=== PATIENT | male | born 1965 | race Caucasian/White ===

== ENCOUNTER 2020-03-05 10:17 | Emergency (ER) | payer BC ==
[2020-03-05 10:34] VITALS: BMI 40.7
--- NOTE | 2020-03-05 11:06 | PDOC ---
History of Present Illness - General Chief Complaint: Pain Stated Complaint: LT SHOULDER PAIN Time Seen by Provider: 03/05/20 10:43 Past History - Medical History Allergies/Adverse Reactions: Allergies Allergy/AdvReac Type Severity Reaction Status Date / Time No Known Allergies Allergy Verified 03/05/20 10:20 Home Medications: Ambulatory Orders Escitalopram Oxalate [Lexapro -] 20 mg PO DAILY 03/05/20 Insulin (Novolog) [Novolog] 10 units SQ AC 03/05/20 Ramipril [Altace] 10 mg PO DAILY 03/05/20 Rosuvastatin [Crestor -] 5 mg PO HS 03/05/20 COPD: No Diabetes: Yes HTN: Yes Hypercholesterolemia: Yes - Psycho-Social/Smoking History Smoking History: Unknown if ever smoked - Substance Abuse Hx (Audit-C & DAST Scrn) How often the patient has a drink containing alcohol: Monthly or less Score: In Men: 4 or > Positive; In Women: 3 or > Positive: 1 Screen Result (Pos requires Nsg. Audit-10AR): Negative In the last yr the pt used illegal drug/Rx for NonMed reason: No Score: Yes response is considered Positive: 0 Screen Result (Positive result requires Nsg. DAST-10): Negative *Physical Exam - Vital Signs Last Vital Signs Temp Pulse Resp BP Pulse Ox 98.1 F 89 20 158/103 H 98 03/05/20 10:22 03/05/20 10:22 03/05/20 10:22 03/05/20 10:22 03/05/20 10:22 ED Treatment Course - LABORATORY CBC & Chemistry Diagram: 03/05/20 10:40 03/05/20 10:45 Medical Decision Making - Medical Decision Making 03/05/20 11:07 HPI: 54yo M hx DM and morbid obesity presents with 2-3 weeks gradual onset L posterior shoulder pain worse when arm raised above head, worse after sleeping, started for 2 days then self-resolved, returned on Saturday and now associated wi th shooting pain down arm. No numbness/tingling, weakness, neck pain, back pain, trauma, heavy lifting, F/C. ROS: Constitutional: Negative for chills, fever, fatigue, diaphoresis. HENT: Negative for sore throat, rhinorrhea, congestion. Eyes: Negative for visual disturbance. Respiratory: Negative for shortness of breath, cough, and wheezing. Cardiovascular: Negative for chest pain, palpitations, and leg swelling. Gastrointestinal: Negative for abdominal pain, blood in stool, constipation, diarrhea, nausea, and vomiting. Genitourinary: Negative for dysuria, flank pain, and hematuria. Musculoskeletal: Positive for L shoulder pain and L arm pain. Negative for myalgias, back pain, and neck pain. Skin: Negative for rash. Neurological: Negative for light-headedness, dizziness, vertigo, syncope, weakness, numbness and headaches. Psychiatric/Behavioral: Negative for behavioral problems and confusion. PE: Gen: Alert, NAD, comfortable-appearing, obese HEENT: PERRL, EOMI, MMM, NCAT. No conjunctival pallor. Sclera are non-icteric. CV: Regular rate and rhythm. No murmurs, rubs, or gallops. PULM: No resp distress. CTAB, no wheezes, rales, or rhonchi. ABD: protuberant, soft, NT/ND, no rebound tenderness or guarding, no CVA tenderness. BACK: +upper L back ttp at delt/trapezius. No TTP of c/t/l-spine. No step-offs or deformities. MSK: No bony deformities. 2+ pulses in all extremities. NEURO: AAOx3. PERRL. No gross CN deficits. Strength and sensation grossly intact throughout. EXTREMITIES: No cyanosis. No clubbing. No edema. No calf tenderness. LUE: full non-painful AROM L shoulder/elbow/wrist. SILT throughout. 2+ pulses. <2 sec cap refill. 5/5 strength throughout. No TTP of shoulder. PSYCH: Normal mood and thought pattern. SKIN: Warm and dry. Normal capillary refill. No rashes. No jaundice. MDM: 54yo M hx DM and morbid obesity presents with 2-3 weeks gradual onset L posterior shoulder pain. Hemodynamically stable, afebrile, LUE neurovascularly intact, full ROM L shoulder. Ddx: Most likely muscle spasm vs tendon/ligament injury. Also consider fx, dislocation, malignancy, infection, metabolic derangement, anemia. No back or neck pain or neuro deficits concerning for radiculopathy. -EKG -CXR -CBC,CMP,Cardiac profile -XR shoulder -Toradol, lidoderm patch -Dispo: pending workup and reassessment, likely d/c home 03/05/20 11:29 Labs reviewed. No concerning findings. EKG reviewed: normal sinus rhythm, 82bpm, normal axis, normal intervals, no e/o acute ischemia CXR reviewed: No acute pathology XR shoulder reviewed: 3 views of the left shoulder reveal no sign of fracture or subluxation and no sign of blastic or lytic changes. There may be a bone island in the humeral head. If symptoms persist or if there is decreased range of motion, then further imaging and orthopedic consultation may be of help. Pt still in pain. -Valium Pain improved. Pt safe for d/c. Will discharge home with ortho f/u. Return precautions given. Pt understands all discharge instructions and all questions were answered. Discharge - Discharge Information Problems reviewed: Yes Clinical Impression/Diagnosis: Left shoulder pain Condition: Improved Disposition: HOME - Admission No - Follow up/Referral Referrals: Gonsalo Downs MD [Primary Care Provider] - Jarrett Kessler DO [Staff Physician] - - Patient Discharge Instructions Patient Printed Discharge Instructions: DI for Shoulder Pain Additional Instructions: You have been seen in the Emergency Department for your shoulder pain. Your EKG, chest X-ray, shoulder X-ray, and labs show no signs concerning for an emergent condition such as a heart attack or fracture. Your pain is most likely due to a muscle spasm, intermittently compressing your nerve. We have given you a referral to an Orthopedist (bone doctor) - call his office to set up a follow-up appointment for within 1 week. If you experience pain, you can take Tylenol or Ibuprofen as directed on the medication bottle, but do not exceed 3g of Ibuprofen or 4g of Tylenol a day. Follow-up with your primary care doctor within 1 week. Return to the Emergency Department immediately if you experience numbness/tingling, weakness, neck pain, or any other new or worsening symptom. - Post Discharge Activity
[2020-03-05] MEDS ORDERED: KETOROLAC TROMETHAMINE 15 MG/ML VIAL IVPUSH ONE (11:07)
[2020-03-05] MEDS ORDERED: LIDOCAINE 5% TOPICAL PATCH TP ONE (11:07)
[2020-03-05 11:10] LABS: EOS % 2.2 % (0-4.5); HEMATOCRIT 42.7 % (35.4-49); HEMOGLOBIN 14.4 GM/dL (11.7-16.9); LYMPH % 26.2 % (8-40); MCH 29.1 pg (25.7-33.7); MCHC 33.8 g/dl (32.0-35.9); MEAN CELL VOLUME 86.3 fl (80-96); MEAN PLT VOLUME 7.3 fl (7.5-11.1); MONO % 8.1 % (3.8-10.2); NEUT % 62.5 % (42.8-82.8); PLATELET COUNT 279 K/MM3 (134-434); RBC 4.95 M/mm3 (4.00-5.60); RDW 13.8 % (11.9-15.9)
[2020-03-05] MEDS ORDERED: LIDOCAINE 5% TOPICAL PATCH ONE (11:12)
[2020-03-05] MEDS ORDERED: KETOROLAC TROMETHAMINE 15 MG/ML VIAL ONE (11:12)
--- NOTE | 2020-03-05 11:32 | PDOC ---
Documentation entered by Aliya Denis SCRIBE, acting as scribe for Rajni Thomas MD. Rajni Thomas MD: This documentation has been prepared by the Cira avery Brenda, SCRIBE, under my direction and personally reviewed by me in its entirety. I confirm that the documentation accurately reflects all work, treatment, procedures, and medical decision making performed by me. Attending Attestation - Resident Resident Name: KylahShira - ED Attending Attestation I have performed the following: I have examined & evaluated the patient, The case was reviewed & discussed with the resident, I agree w/resident's findings & plan, Exceptions are as noted - HPI HPI: 03/05/20 11:32 54 YOM with a significant PMH of DM who presents to the ED for evaluation of a few weeks of left posterior shoulder pain. Patient states that the pain came on a few weeks ago and self resolved for 2 days. The pain then returned this past week worse. Patient notes pain started after he beleievs he slept weird. Patient endorses taking Advil which intermittently helps. Denies heavy lifting or trauma. Denies numbness, tingling and weakness. - Physicial Exam PE: 03/05/20 11:45 Agree with the resident's HPI and PE as documented in the electronic medical record. physical exam General: NAD, well appearing HEENT: NCAT, EOMI, PERRL. airway patent CVS: RRR, no murmur Resp: no distress, speaking full sentences. Abdomen: soft, no tenderness, nondistended Vascular: 2+ DP pulses symmetric and equal. Back: no midline tenderness, no stepoffs, FROM MSK: notable for soft compartments, Cap refill <2 sec. Proximal and distal strength 5/5, telephone lineman strength 5/5 - equal and symmetric. Plantar flexion and dorsiflexion 5/5. FROM. Sensation grossly intact to light touch. No calf tenderness. Neuro: alert, no focal neurologic deficits Skin: color normal color, warm and well perfused. Cap refill <2 sec. Upper Extremity: shoulder abduction/adduction/flexion/extension and prox strength 5/5 actively against resistance. 5/5 shoulder shrug strength. deltoid sensation intact; sensation grossly intact in median/radial/ulnar distribution. distal telephone lineman strength 5/5. 2+ radialis pulses bilaterally and symmetric. +point tenderness to left mid scapula. no shoulder tenderness 03/05/20 12:12 - Medical Decision Making 03/05/20 11:45 Vital Signs Temp Pulse Resp BP Pulse Ox 98.1 F 89 20 158/103 H 98 03/05/20 10:22 03/05/20 10:22 03/05/20 10:22 03/05/20 10:22 03/05/20 10:22 X-ray of the shoulder negative for fracture or subluxation, bony island in the humeral head otherwise unremarkable study. Chest x-ray no acute pathology is noted, analgesia here likely msk, analgesia topical lido discharge with pmd/ortho followup, 03/05/20 12:12 Heart Score/ECG Review #1 ECG reviewed & interpreted by me at: 10:35 General ECG Interpretation: Sinus Rhythm, Normal Rate, Normal Intervals 03/05/20 11:31 EKG normal sinus rhythm 82 bpm, no interval abnormalities, narrow QRS, ST and T wave segments and morphology normal. Nonspecific T wave abnormalities Discharge - Discharge Information Problems reviewed: Yes Clinical Impression/Diagnosis: Left shoulder pain Qualifiers: Chronicity: unspecified Qualified Code(s): M25.512 - Pain in left shoulder Condition: Improved Disposition: HOME - Follow up/Referral Referrals: Gonsalo Downs MD [Primary Care Provider] - Jarrett Kessler DO [Staff Physician] - - Patient Discharge Instructions Patient Printed Discharge Instructions: DI for Shoulder Pain Additional Instructions: You have been seen in the Emergency Department for your shoulder pain. Your EKG, chest X-ray, shoulder X-ray, and labs show no signs concerning for an emergent condition such as a heart attack or fracture. Your pain is most likely due to a muscle spasm, intermittently compressing your nerve. We have given you a referral to an Orthopedist (bone doctor) - call his office to set up a follow-up appointment for within 1 week. If you experience pain, you can take Tylenol or Ibuprofen as directed on the medication bottle, but do not exceed 3g of Ibuprofen or 4g of Tylenol a day. Follow-up with your primary care doctor within 1 week. Return to the Emergency Department immediately if you experience numbness/tingling, weakness, neck pain, or any other new or worsening symptom. - Post Discharge Activity
[2020-03-05 11:45] LABS: ALBUMIN 3.9 g/dl (3.4-5.0); ALK PHOS 52 U/L (45-117); ANION GAP 8 MMOL/L (8-16); BILIRUBIN,TOTAL 0.3 mg/dL (0.2-1); BLOOD UREA NITROGEN 23.1 mg/dL (7-18); CALCIUM 9.1 mg/dL (8.5-10.1); CHLORIDE 104 mmol/L (98-107); CO2 25 mmol/L (21-32); CREATININE 0.7 mg/dL (0.55-1.3); GLUCOSE,RANDOM 154 mg/dL (74-106); POTASSIUM 3.9 mmol/L (3.5-5.1); SGOT/AST 22 U/L (15-37); SGPT/ALT 34 U/L (13-61); SODIUM 137 mmol/L (136-145); TOT PROT 7.1 g/dl (6.4-8.2)
[2020-03-05] MEDS ORDERED: diazePAM 5 MG TABLET PO ONE (12:03)
[2020-03-05 12:26] VITALS: BP 140/85; PULSE 81; TEMP 98
[2020-03-05] MEDS ORDERED: LIDOCAINE PATCH REMOVAL MC SCH (22:00)
--- NOTE | 2020-03-07 21:54 | EKG ---
Test Reason : Blood Pressure : / mmHG Vent. Rate : 082 BPM Atrial Rate : 082 BPM P-R Int : 170 ms QRS Dur : 098 ms QT Int : 376 ms P-R-T Axes : 040 027 057 degrees QTc Int : 439 ms NORMAL SINUS RHYTHM POSSIBLE LEFT ATRIAL ENLARGEMENT CANNOT RULE OUT ANTERIOR INFARCT , AGE UNDETERMINED ABNORMAL ECG WHEN COMPARED WITH ECG OF 23-APR-2011 11:28, VENT. RATE HAS DECREASED BY 52 BPM T WAVE VARIATION Confirmed by POP MILLER MD ([id number]) on 03/07/2020 9:54:30 PM Referred By: Confirmed By:POP MILLER MD
== END 2020-03-05 12:24 | disposition home or self-care (01) ==
LOC: JER 10:17
PROC: 3E0333Z Introduction of Anti-inflammatory into Peripheral Vein, Percutaneous Approach (ICD-10-PCS; principal; 2020-03-05)
DX: M25.512 Pain in left shoulder (principal)
CPT/HCPCS: 36415; 71046-TC-FY; 73030-TC-LT-FY; 80053; 82550; 83735; 84484; 85025; 93005; 93010; 99285-25

== ENCOUNTER 2021-01-01 22:18 | Inpatient (IN) | payer BC ==
[2021-01-01 22:42] VITALS: BMI 38.2
[2021-01-01] MEDS ORDERED: SODIUM CHLORIDE 1,000 ML IV STA (22:47)
[2021-01-01 23:01] LABS: BASO % 0.2 % (0-2.0); HEMATOCRIT 44.7 % (35.4-49); HEMOGLOBIN 14.2 GM/dL (11.7-16.9); LYMPH % 6.4 % (8-40); MCH 29.3 pg (25.7-33.7); MCHC 31.8 g/dl (32.0-35.9); MEAN PLT VOLUME 7.6 fl (7.5-11.1); MONO % 3.6 % (3.8-10.2); NEUT % 89.8 % (42.8-82.8); PLATELET COUNT 395 10^3/uL (134-434); RBC 4.86 M/mm3 (4.00-5.60); RDW 14.6 % (11.9-15.9); WHITE BLOOD COUNT 17.9 K/mm3 (4.0-10.0)
[2021-01-01 23:26] LABS: CHLORIDE 94 mmol/L (98-107); SODIUM 129 mmol/L (136-145)
[2021-01-01 23:27] LABS: ARTERIAL BLD GAS O2 SATURATION 94.2 mmHg (95-98); ARTERIAL BLOOD GAS PO2 93.5 mmHg (80-100)
[2021-01-01 23:28] LABS: CALCIUM 9.3 mg/dL (8.5-10.1)
[2021-01-01 23:29] LABS: ALBUMIN 3.6 g/dl (3.4-5.0); ANION GAP 28 MMOL/L (8-16); BLOOD UREA NITROGEN 24.8 mg/dL (7-18); CO2 7 mmol/L (21-32)
[2021-01-01 23:32] LABS: CREATININE 1.4 mg/dL (0.55-1.3); SGOT/AST 16 U/L (15-37); SGPT/ALT 23 U/L (13-61)
[2021-01-01 23:34] LABS: BILIRUBIN,TOTAL 0.5 mg/dL (0.2-1); TOT PROT 7.2 g/dl (6.4-8.2)
[2021-01-01 23:35] LABS: ALK PHOS 93 U/L (45-117); GLUCOSE,RANDOM 594 mg/dL (74-106); LACTIC ACID 2.9 mmol/L (0.4-2.0)
[2021-01-01] MEDS ORDERED: ONDANSETRON 4 MG/2 ML VIAL IVPUSH ONE (23:36)
[2021-01-01 23:37] LABS: URINE APPEARANCE CLEAR; URINE BILIRUBIN NEGATIVE (NEGATIVE); URINE COLOR YELLOW; URINE GLUCOSE (UA) 3+ (NEGATIVE); URINE KETONE 3+ (NEGATIVE); URINE LEUK ESTERASE NEGATIVE (NEGATIVE); URINE NITRITE NEGATIVE (NEGATIVE); URINE PROTEIN TRACE (NEGATIVE); URINE UROBILINOGEN 0.2 mg/dL (0.2-1.0)
[2021-01-01] MEDS ORDERED: ASPIRIN 325 MG TABLET PO ONE (23:38)
[2021-01-01] MEDS ORDERED: ONDANSETRON 4 MG/2 ML VIAL ONE (23:38)
[2021-01-01] MEDS ORDERED: ASPIRIN 325 MG ENTERIC COATED TABLET (FP) ONE (23:41)
[2021-01-01] MEDS ORDERED: INSULIN REGULAR HUMAN 100 UNITS/ML *VIAL IVPUSH ONE (23:41)
[2021-01-01 23:50] LABS: ARTERIAL BLOOD GAS pH 7.082 (7.350-7.450)
[2021-01-02] MEDS ORDERED: INSULIN REGULAR 100 UNITS in SODIUM CHLORIDE 99 ML IVPB SCH ×2 (00:30→00:45)
[2021-01-02] MEDS ORDERED: INSULIN REGULAR HUMAN 100 UNITS/ML *VIAL* (FOR IVP) IVPUSH ONE (00:34)
[2021-01-02] MEDS ORDERED: DEXTROSE 50%-WATER - 25 GM/50 ML VIAL IVPUSH PRN (00:34)
[2021-01-02 01:18] LABS: BASO % 0.3 % (0-2.0); HEMATOCRIT 43.7 % (35.4-49); HEMOGLOBIN 13.9 GM/dL (11.7-16.9); LYMPH % 5.4 % (8-40); MCH 29.5 pg (25.7-33.7); MCHC 31.7 g/dl (32.0-35.9); MEAN CELL VOLUME 93.1 fl (80-96); MEAN PLT VOLUME 7.7 fl (7.5-11.1); MONO % 4.6 % (3.8-10.2); NEUT % 89.7 % (42.8-82.8); PLATELET COUNT 376 10^3/uL (134-434); RBC 4.69 M/mm3 (4.00-5.60); RDW 14.6 % (11.9-15.9); WHITE BLOOD COUNT 20.6 K/mm3 (4.0-10.0)
[2021-01-02] MEDS ORDERED: SODIUM CHLORIDE 0.9% 500 ML INFUS.BAG IV ONE (01:20)
[2021-01-02 01:38] LABS: CHLORIDE 100 mmol/L (98-107); SODIUM 134 mmol/L (136-145)
[2021-01-02 01:41] LABS: CALCIUM 8.5 mg/dL (8.5-10.1)
[2021-01-02 01:42] LABS: ANION GAP 29 MMOL/L (8-16); CO2 5 mmol/L (21-32)
[2021-01-02 01:45] LABS: CREATININE 1.4 mg/dL (0.55-1.3)
[2021-01-02 02:15] LABS: LACTIC ACID 2.9 mmol/L (0.4-2.0)
[2021-01-02 02:15] LABS: GLUCOSE,RANDOM 553 mg/dL (74-106)
[2021-01-02] MEDS ORDERED: SODIUM CHLORIDE 0.45%/POT 20 MEQ/1,000 ML INFUS.BAG IV SCH (02:30)
[2021-01-02] MEDS ORDERED: HEPARIN NA (PORCINE) 5,000 UNITS/ML 1ML VIAL SQ SCH (06:00)
[2021-01-02 06:07] LABS: BASO % 0.3 % (0-2.0); HEMATOCRIT 41.4 % (35.4-49); HEMOGLOBIN 13.4 GM/dL (11.7-16.9); LYMPH % 6.7 % (8-40); MCH 29.1 pg (25.7-33.7); MCHC 32.2 g/dl (32.0-35.9); MEAN CELL VOLUME 90.1 fl (80-96); MEAN PLT VOLUME 7.4 fl (7.5-11.1); MONO % 6.9 % (3.8-10.2); NEUT % 86.1 % (42.8-82.8); PLATELET COUNT 323 10^3/uL (134-434); RDW 14.3 % (11.9-15.9)
[2021-01-02 06:10] LABS: VENOUS BASE EXCESS -17.6 mmol/L (-2-2); VENOUS O2 SATURATION 74.6 % (70-80); VENOUS PCO2 38.3 mmHg (38-52)
[2021-01-02 06:13] LABS: VENOUS PH 7.093 (7.310-7.410)
[2021-01-02 06:30] LABS: CHLORIDE 106 mmol/L (98-107); SODIUM 138 mmol/L (136-145)
[2021-01-02 06:34] LABS: ALBUMIN 3.2 g/dl (3.4-5.0); CALCIUM 8.2 mg/dL (8.5-10.1)
[2021-01-02 06:35] LABS: ANION GAP 19 MMOL/L (8-16); BLOOD UREA NITROGEN 23.4 mg/dL (7-18); CO2 12 mmol/L (21-32); GLUCOSE,RANDOM 242 mg/dL (74-106); LIPASE 170 U/L (73-393); MAGNESIUM 2.1 mg/dL (1.8-2.4)
[2021-01-02 06:37] LABS: CREATININE 1.3 mg/dL (0.55-1.3); SGOT/AST 18 U/L (15-37); SGPT/ALT 23 U/L (13-61)
[2021-01-02 06:39] LABS: BILIRUBIN,TOTAL 0.5 mg/dL (0.2-1); TOT PROT 6.5 g/dl (6.4-8.2)
[2021-01-02 06:40] LABS: ALK PHOS 80 U/L (45-117)
[2021-01-02 07:17] LABS: LACTIC ACID 2.3 mmol/L (0.4-2.0)
[2021-01-02] MEDS: DEXTROSE 5%-0.45% SALINE 990 ML with POTASSIUM CHLORIDE 20 MEQ IV SCH ×2 (08:07→14:38)
[2021-01-02] MEDS: Insulin (LOG) Aspart 100 UNITS/ML VIAL SQ SCH ×3 (08:15→11:19)
[2021-01-02 09:20] LABS: BLOOD UREA NITROGEN 21.8 mg/dL (7-18)
[2021-01-02 09:24] LABS: CREATININE 1.1 mg/dL (0.55-1.3)
[2021-01-02] MEDS: MUPIROCIN 2% TOPICAL OINTMENT FOR DECOLONIZATION NS SCH ×2 (10:11→22:54)
[2021-01-02] MEDS: ASPIRIN 81 MG CHEWABLE TABLETS PO SCH (10:12)
[2021-01-02] MEDS: ATORVASTATIN CA 80 MG TABLET (FP) PO SCH (10:12)
[2021-01-02] MEDS: metoPROLOL SUCCINATE 25 MG TAB.SR.24H (FP) PO SCH (10:12)
[2021-01-02] MEDS ORDERED: CLOPIDOGREL BISULFATE 300 MG TABLET PO ONE (10:28)
[2021-01-02] MEDS ORDERED: HEPARIN NA (PORCINE) 5,000 UNITS/ML 1ML VIAL IVPUSH PRN ×2 (10:29)
[2021-01-02] MEDS ORDERED: HEPARIN - 25,000 UNIT in SODIUM CHLORIDE 495 ML IV SCH (10:30)
[2021-01-02 11:11] LABS: CHLORIDE 107 mmol/L (98-107); SODIUM 137 mmol/L (136-145)
[2021-01-02 11:13] LABS: ANION GAP 17 MMOL/L (8-16); BLOOD UREA NITROGEN 20.7 mg/dL (7-18); CALCIUM 7.7 mg/dL (8.5-10.1); CO2 13 mmol/L (21-32); GLUCOSE,RANDOM 169 mg/dL (74-106)
[2021-01-02 11:16] LABS: CREATININE 1.2 mg/dL (0.55-1.3)
[2021-01-02 14:21] LABS: CHLORIDE 108 mmol/L (98-107); SODIUM 137 mmol/L (136-145)
[2021-01-02 14:23] LABS: ANION GAP 11 MMOL/L (8-16); CALCIUM 7.6 mg/dL (8.5-10.1); CO2 18 mmol/L (21-32); GLUCOSE,RANDOM 202 mg/dL (74-106)
[2021-01-02 14:24] LABS: BLOOD UREA NITROGEN 15.8 mg/dL (7-18)
[2021-01-02 17:30] LABS: CALCIUM 7.7 mg/dL (8.5-10.1)
[2021-01-02] MEDS: INSULIN SLIDING SCALE (NOVOLOG) 1 VIAL SQ SCH ×2 (18:09→22:53)
[2021-01-02 20:47] LABS: CALCIUM 7.5 mg/dL (8.5-10.1); CHLORIDE 106 mmol/L (98-107); SODIUM 136 mmol/L (136-145)
[2021-01-02 20:48] LABS: ANION GAP 11 MMOL/L (8-16); BLOOD UREA NITROGEN 13.8 mg/dL (7-18); CO2 18 mmol/L (21-32); GLUCOSE,RANDOM 220 mg/dL (74-106)
[2021-01-02 20:54] LABS: CREATININE 0.9 mg/dL (0.55-1.3)
[2021-01-02] MEDS ORDERED: CHLORHEXIDINE GLUCONATE 4% CLEANSER FOR DECOLONIZATION TP SCH (22:00)
[2021-01-03] MEDS: DEXTROSE 5%-0.45% SALINE 990 ML with POTASSIUM CHLORIDE 20 MEQ IV SCH ×2 (01:39→08:38)
[2021-01-03] MEDS: INSULIN SLIDING SCALE (NOVOLOG) 1 VIAL SQ SCH ×2 (06:38→11:01)
[2021-01-03 07:04] LABS: ACTIVATED PTT 60.5 SECONDS (25.2-36.5)
[2021-01-03 07:21] LABS: MAGNESIUM 2.1 mg/dL (1.8-2.4)
[2021-01-03 07:24] LABS: PHOSPHOROUS 1.7 mg/dL (2.5-4.9)
[2021-01-03 08:20] LABS: BASO % 0.7 % (0-2.0); EOS % 0.3 % (0-4.5); HEMATOCRIT 37.2 % (35.4-49); HEMOGLOBIN 12.5 GM/dL (11.7-16.9); LYMPH % 20.6 % (8-40); MCH 29.8 pg (25.7-33.7); MCHC 33.5 g/dl (32.0-35.9); MEAN CELL VOLUME 88.9 fl (80-96); MEAN PLT VOLUME 7.7 fl (7.5-11.1); MONO % 9.8 % (3.8-10.2); NEUT % 68.6 % (42.8-82.8); PLATELET COUNT 214 10^3/uL (134-434); RBC 4.19 M/mm3 (4.00-5.60); RDW 14.7 % (11.9-15.9); WHITE BLOOD COUNT 9.5 K/mm3 (4.0-10.0)
[2021-01-03 08:25] LABS: INR 0.93 (0.83-1.09); PROTHROMBIN TIME (PATIENT) 11.3 SEC (9.7-13.0)
[2021-01-03] MEDS ORDERED: POTASSIUM PHOSPHATE 20 MM in SODIUM CHLORIDE 500 ML IVPB ONE (08:30)
[2021-01-03] MEDS: metoPROLOL SUCCINATE 25 MG TAB.SR.24H (FP) PO SCH (09:06)
[2021-01-03] MEDS: ASPIRIN 81 MG CHEWABLE TABLETS PO SCH (09:06)
[2021-01-03] MEDS: ATORVASTATIN CA 80 MG TABLET (FP) PO SCH (09:06)
[2021-01-03] MEDS: MUPIROCIN 2% TOPICAL OINTMENT FOR DECOLONIZATION NS SCH (09:07)
[2021-01-03 09:39] LABS: BLOOD UREA NITROGEN 10.8 mg/dL (7-18); CALCIUM 7.7 mg/dL (8.5-10.1)
[2021-01-03 09:43] LABS: CREATININE 0.9 mg/dL (0.55-1.3)
[2021-01-03] MEDS ORDERED: CLOPIDOGREL BISULFATE 75 MG TABLET (FP) PO SCH (10:00)
[2021-01-03 11:08] VITALS: BP 129/83; PULSE 88; TEMP 98.6
[2021-01-03] MEDS ORDERED: SODIUM PHOSPHATE - 30 MM in SODIUM CHLORIDE 250 ML IVPB ONE (11:47)
== END 2021-01-03 11:50 | disposition short-term general hospital (02) | DRG 280 ==
LOC: JER 22:18 → JERBED 01-02 00:21 → JICU 01-02 02:47
PROVIDERS: ADMIT Internal Medicine; ATTEND Internal Medicine
DX: I21.4 Non-ST elevation (NSTEMI) myocardial infarction (principal); E10.10 Type 1 diabetes mellitus with ketoacidosis without coma; N17.9 Acute kidney failure, unspecified; E78.5 Hyperlipidemia, unspecified; I10 Essential (primary) hypertension; E66.9 Obesity, unspecified; Z91.11 Patient's noncompliance with dietary regimen; Z68.38 Body mass index [BMI] 38.0-38.9, adult
CPT/HCPCS: 36415; 36600; 71045-TC-FY; 80048; 80053; 81003; 82010; 82550; 82803; 82962; 83036; 83605; 83690; 83735; 84100; 84484; 85025; 85610; 85730; 87040; 87086; 93005; 93010; 99285-25; C9803; J1644; J3480; U0003; U0005

== ENCOUNTER 2021-02-06 12:38 | Inpatient (IN) | payer BC ==
[2021-02-06 13:48] VITALS: BMI 38.0
[2021-02-06 13:54] LABS: VENOUS BASE EXCESS -4.3 mmol/L (-2-2); VENOUS O2 SATURATION 31.2 % (70-80); VENOUS PCO2 44.2 mmHg (38-52); VENOUS PH 7.307 (7.310-7.410)
[2021-02-06 13:57] LABS: BASO % 0.4 % (0-2.0); EOS % 1.5 % (0-4.5); HEMATOCRIT 17.1 % (35.4-49); LYMPH % 16.3 % (8-40); MCH 30.2 pg (25.7-33.7); MCHC 32.1 g/dl (32.0-35.9); MONO % 6.4 % (3.8-10.2); NEUT % 75.4 % (42.8-82.8); PLATELET COUNT 345 10^3/uL (134-434); RBC 1.82 M/mm3 (4.00-5.60); WHITE BLOOD COUNT 7.3 K/mm3 (4.0-10.0)
[2021-02-06 14:01] LABS: HEMOGLOBIN 5.5 GM/dL (11.7-16.9)
[2021-02-06 14:05] LABS: PROTHROMBIN TIME (PATIENT) 12.3 SEC (9.7-13.0)
[2021-02-06 14:07] LABS: ACTIVATED PTT 25.4 SECONDS (25.2-36.5)
[2021-02-06 14:19] LABS: CHLORIDE 102 mmol/L (98-107); SODIUM 135 mmol/L (136-145)
[2021-02-06 14:21] LABS: ALBUMIN 2.8 g/dl (3.4-5.0); ANION GAP 12 MMOL/L (8-16); BLOOD UREA NITROGEN 14.2 mg/dL (7-18); CALCIUM 7.6 mg/dL (8.5-10.1); CO2 22 mmol/L (21-32)
[2021-02-06 14:24] LABS: SGOT/AST 8 U/L (15-37); SGPT/ALT 14 U/L (13-61)
[2021-02-06 14:25] LABS: CREATININE 0.8 mg/dL (0.55-1.3)
[2021-02-06 14:26] LABS: BILIRUBIN,TOTAL 0.5 mg/dL (0.2-1); TOT PROT 5.6 g/dl (6.4-8.2)
[2021-02-06 14:27] LABS: ALK PHOS 51 U/L (45-117)
[2021-02-06 15:01] LABS: GLUCOSE,RANDOM 404 mg/dL (74-106)
[2021-02-06] MEDS ORDERED: Insulin (LOG) Aspart 100 UNITS/ML VIAL SQ ONE (15:17)
[2021-02-06] MEDS ORDERED: INSULIN SLIDING SCALE (NOVOLOG) 1 VIAL SQ ONE (15:26)
[2021-02-06] MEDS ORDERED: PANTOPRAZOLE 40 MG TABLET PO SCH (18:45)
[2021-02-06] MEDS ORDERED: INSULIN SLIDING SCALE (NOVOLOG) 1 VIAL SQ SCH (22:00)
[2021-02-06] MEDS: SODIUM CHLORIDE 1,000 ML IV SCH (22:03)
[2021-02-06] MEDS: ROSUVASTATIN CA 10 MG TABLET (FP) PO SCH (22:04)
[2021-02-06] MEDS: PANTOPRAZOLE SODIUM 40 MG VIAL IVPUSH SCH (22:04)
[2021-02-07] MEDS: INSULIN SLIDING SCALE (NOVOLOG) 1 VIAL SQ SCH ×4 (06:34→21:44)
[2021-02-07] MEDS ORDERED: INSULIN (LEVEMIR) 100 UNITS/ML UNITS SQ SCH ×2 (07:00→22:24)
[2021-02-07 08:05] LABS: BASO % 0.7 % (0-2.0); EOS % 2.6 % (0-4.5); HEMATOCRIT 22.4 % (35.4-49); HEMOGLOBIN 7.4 GM/dL (11.7-16.9); LYMPH % 23.2 % (8-40); MCH 29.7 pg (25.7-33.7); MCHC 32.9 g/dl (32.0-35.9); MEAN CELL VOLUME 90.1 fl (80-96); MEAN PLT VOLUME 7.1 fl (7.5-11.1); MONO % 7.1 % (3.8-10.2); NEUT % 66.4 % (42.8-82.8); PLATELET COUNT 350 10^3/uL (134-434); RBC 2.49 M/mm3 (4.00-5.60); RDW 15.7 % (11.9-15.9); WHITE BLOOD COUNT 6.6 K/mm3 (4.0-10.0)
[2021-02-07 08:30] LABS: ALBUMIN 2.6 g/dl (3.4-5.0); BLOOD UREA NITROGEN 12.4 mg/dL (7-18); CALCIUM 7.7 mg/dL (8.5-10.1); MAGNESIUM 2.4 mg/dL (1.8-2.4)
[2021-02-07 08:33] LABS: CREATININE 0.6 mg/dL (0.55-1.3); PHOSPHOROUS 3.5 mg/dL (2.5-4.9)
[2021-02-07 08:35] LABS: BILIRUBIN,TOTAL 1.2 mg/dL (0.2-1); TOT PROT 5.3 g/dl (6.4-8.2)
[2021-02-07] MEDS: PANTOPRAZOLE SODIUM 40 MG VIAL IVPUSH SCH ×2 (09:14→21:32)
[2021-02-07] MEDS: ESCITALOPRAM OXALATE 20 MG TABLET PO SCH (09:14)
[2021-02-07] MEDS: CHOLECALCIFEROL (VIT D3) 400 UNIT (10 MCG) TABLET PO SCH (09:14)
[2021-02-07] MEDS: RAMIPRIL 5 MG CAPSULE PO SCH (09:14)
[2021-02-07 20:45] LABS: HEMATOCRIT 24.4 % (35.4-49); HEMOGLOBIN 8.1 GM/dL (11.7-16.9); MCH 29.4 pg (25.7-33.7); MEAN PLT VOLUME 6.9 fl (7.5-11.1); PLATELET COUNT 354 10^3/uL (134-434); RBC 2.74 M/mm3 (4.00-5.60); RDW 15.6 % (11.9-15.9); WHITE BLOOD COUNT 7.9 K/mm3 (4.0-10.0)
[2021-02-07] MEDS: ROSUVASTATIN CA 10 MG TABLET (FP) PO SCH (21:31)
[2021-02-07] MEDS: SODIUM CHLORIDE 1,000 ML IV SCH (21:43)
[2021-02-07] MEDS: INSULIN (LEVEMIR) 100 UNITS/ML UNITS SQ SCH (21:43)
[2021-02-08] MEDS: INSULIN SLIDING SCALE (NOVOLOG) 1 VIAL SQ SCH ×4 (06:42→21:22)
[2021-02-08 07:55] LABS: HEMATOCRIT 25.6 % (35.4-49); HEMOGLOBIN 8.5 GM/dL (11.7-16.9); MCH 29.7 pg (25.7-33.7); MCHC 33.2 g/dl (32.0-35.9); MEAN CELL VOLUME 89.4 fl (80-96); MEAN PLT VOLUME 7.1 fl (7.5-11.1); PLATELET COUNT 366 10^3/uL (134-434); RBC 2.86 M/mm3 (4.00-5.60); RDW 15.8 % (11.9-15.9); WHITE BLOOD COUNT 7.5 K/mm3 (4.0-10.0)
[2021-02-08 08:11] LABS: CALCIUM 7.9 mg/dL (8.5-10.1)
[2021-02-08 08:12] LABS: ALBUMIN 2.8 g/dl (3.4-5.0); BLOOD UREA NITROGEN 9.8 mg/dL (7-18); MAGNESIUM 2.3 mg/dL (1.8-2.4)
[2021-02-08 08:14] LABS: BILIRUBIN,TOTAL 0.9 mg/dL (0.2-1)
[2021-02-08 08:15] LABS: CREATININE 0.5 mg/dL (0.55-1.3); PHOSPHOROUS 3.7 mg/dL (2.5-4.9)
[2021-02-08 08:18] LABS: TOT PROT 5.4 g/dl (6.4-8.2)
[2021-02-08] MEDS ORDERED: PT OWN MED DRAWER 7, Y5N ONE ×2 (09:04→12:29)
[2021-02-08] MEDS: RAMIPRIL 5 MG CAPSULE PO SCH (09:21)
[2021-02-08] MEDS: PANTOPRAZOLE SODIUM 40 MG VIAL IVPUSH SCH (09:21)
[2021-02-08] MEDS: CHOLECALCIFEROL (VIT D3) 400 UNIT (10 MCG) TABLET PO SCH (09:22)
[2021-02-08] MEDS: ESCITALOPRAM OXALATE 20 MG TABLET PO SCH (09:22)
[2021-02-08] MEDS ORDERED: IRON SUCROSE INJECTION 200 MG in SODIUM CHLORIDE 100 ML IVPB ONE (12:04)
[2021-02-08] MEDS: ASPIRIN 81 MG CHEWABLE TABLETS PO SCH (17:38)
[2021-02-08] MEDS: SODIUM CHLORIDE 1,000 ML IV SCH (19:45)
[2021-02-08] MEDS ORDERED: INSULIN (LEVEMIR) 100 UNITS/ML UNITS SQ SCH (20:33)
[2021-02-08] MEDS ORDERED: INSULIN (NOVOLOG) ASPART 100 UNITS/ML 10ML VIAL ONE (21:14)
[2021-02-08] MEDS: PANTOPRAZOLE 40 MG TABLET PO SCH (21:22)
[2021-02-08] MEDS: INSULIN (LEVEMIR) 100 UNITS/ML UNITS SQ SCH (21:24)
[2021-02-08] MEDS ORDERED: ROSUVASTATIN CA 20 MG TABLET (FP) PO SCH (22:00)
[2021-02-09] MEDS: INSULIN SLIDING SCALE (NOVOLOG) 1 VIAL SQ SCH ×3 (06:18→16:57)
[2021-02-09 07:35] LABS: HEMATOCRIT 25.5 % (35.4-49); HEMOGLOBIN 8.4 GM/dL (11.7-16.9); MCH 29.1 pg (25.7-33.7); MCHC 32.8 g/dl (32.0-35.9); MEAN CELL VOLUME 88.7 fl (80-96); MEAN PLT VOLUME 6.7 fl (7.5-11.1); PLATELET COUNT 367 10^3/uL (134-434); RBC 2.88 M/mm3 (4.00-5.60); RDW 15.7 % (11.9-15.9); WHITE BLOOD COUNT 8.3 K/mm3 (4.0-10.0)
[2021-02-09 07:43] LABS: BLOOD UREA NITROGEN 12.7 mg/dL (7-18); CALCIUM 7.6 mg/dL (8.5-10.1)
[2021-02-09 07:44] LABS: MAGNESIUM 2.2 mg/dL (1.8-2.4)
[2021-02-09 07:47] LABS: CREATININE 0.5 mg/dL (0.55-1.3)
[2021-02-09] MEDS: CHOLECALCIFEROL (VIT D3) 400 UNIT (10 MCG) TABLET PO SCH (10:07)
[2021-02-09] MEDS: RAMIPRIL 5 MG CAPSULE PO SCH (10:07)
[2021-02-09] MEDS: ASPIRIN 81 MG CHEWABLE TABLETS PO SCH (10:08)
[2021-02-09] MEDS: ESCITALOPRAM OXALATE 20 MG TABLET PO SCH (10:08)
[2021-02-09] MEDS: PANTOPRAZOLE 40 MG TABLET PO SCH (10:08)
[2021-02-09 14:59] VITALS: BP 135/86; PULSE 100; TEMP 98.2
== END 2021-02-09 17:49 | disposition home or self-care (01) | DRG 638 ==
LOC: JER 12:38 → JERBED 15:29 → J4W 20:16
PROVIDERS: ATTEND Internal Medicine
PROC: 30233N1 Transfusion of Nonautologous Red Blood Cells into Peripheral Vein, Percutaneous Approach (ICD-10-PCS; principal; 2021-02-06)
DX: E11.65 Type 2 diabetes mellitus with hyperglycemia (principal); K92.2 Gastrointestinal hemorrhage, unspecified; D64.9 Anemia, unspecified; I10 Essential (primary) hypertension; E78.5 Hyperlipidemia, unspecified; I25.10 Atherosclerotic heart disease of native coronary artery without angina pectoris
CPT/HCPCS: 36415; 36430; 70450-TC; 70551-TC; 71045-TC-FY; 80048; 80053; 82010; 82272; 82550; 82607; 82728; 82747; 82803; 82962; 83010; 83036; 83540; 83550; 83615; 83690; 83735; 84100; 84443; 84484; 85014; 85025; 85027; 85045; 85610; 85730; 86850; 86900; 86901; 86922; 93005; 93010; 93306-TC; 93880-TC; 97116-GP; 97161-GP; 99285-25; C9803; J1756; P9058; U0003; U0005

== ENCOUNTER 2021-04-23 21:42 | Inpatient (IN) | payer BC ==
[2021-04-23] MEDS ORDERED: ONDANSETRON 4 MG/2 ML VIAL IVPUSH ONE (22:27)
[2021-04-23] MEDS ORDERED: LACTATED RINGERS SOLUTION 1000 ML INFUS.BAG IV ONE ×2 (22:27→23:13)
[2021-04-23] MEDS ORDERED: ONDANSETRON 4 MG/2 ML VIAL ONE (22:46)
[2021-04-23 23:07] LABS: BASO % 0.3 % (0-2.0); HEMATOCRIT 45.8 % (35.4-49); HEMOGLOBIN 13.9 GM/dL (11.7-16.9); MEAN CELL VOLUME 86.5 fl (80-96)
[2021-04-23 23:08] LABS: VENOUS BASE EXCESS -24.6 mmol/L (-2-2); VENOUS O2 SATURATION 84.2 % (70-80); VENOUS PCO2 17.2 mmHg (38-52)
[2021-04-23 23:11] LABS: VENOUS PH 7.03 (7.310-7.410)
[2021-04-23 23:15] LABS: INR 0.94 (0.83-1.09); PROTHROMBIN TIME (PATIENT) 11.4 SEC (9.7-13.0)
[2021-04-23 23:17] LABS: ACTIVATED PTT 30.2 SECONDS (25.2-36.5)
[2021-04-23 23:23] LABS: EOS % 0.1 % (0-4.5); LYMPH % 5.5 % (8-40); MCH 26.2 pg (25.7-33.7); MCHC 30.3 g/dl (32.0-35.9); MEAN PLT VOLUME 8.5 fl (7.5-11.1); MONO % 2.9 % (3.8-10.2); NEUT % 91.2 % (42.8-82.8); PLATELET COUNT 386 10^3/uL (134-434); RDW 17.7 % (11.9-15.9); WHITE BLOOD COUNT 17.2 K/mm3 (4.0-10.0)
[2021-04-23 23:32] LABS: CHLORIDE 97 mmol/L (98-107); SODIUM 133 mmol/L (136-145)
[2021-04-23 23:34] LABS: CALCIUM 9.3 mg/dL (8.5-10.1)
[2021-04-23 23:35] LABS: ALBUMIN 3.8 g/dl (3.4-5.0); ANION GAP 30 MMOL/L (8-16); BLOOD UREA NITROGEN 21.7 mg/dL (7-18); CO2 6 mmol/L (21-32); MAGNESIUM 2.3 mg/dL (1.8-2.4)
[2021-04-23 23:38] LABS: CREATININE 1.7 mg/dL (0.55-1.3); SGOT/AST 21 U/L (15-37); SGPT/ALT 14 U/L (13-61)
[2021-04-23 23:40] LABS: BILIRUBIN,TOTAL 0.4 mg/dL (0.2-1); TOT PROT 7.7 g/dl (6.4-8.2)
[2021-04-23 23:41] LABS: ALK PHOS 76 U/L (45-117)
[2021-04-23 23:44] LABS: ANISOCYTOSIS 1+; MACROCYTOSIS 1+; N-TERMINAL BNP 3695.9 pg/ml (5-125)
[2021-04-23 23:44] LABS: EPI CELLS 6 /uL (0-25.1); HYALINE CASTS 4 /uL (0-3.1); URINE APPEARANCE CLEAR; URINE BACTERIA 2 /uL (0-1359); URINE BILIRUBIN NEGATIVE (NEGATIVE); URINE COLOR YELLOW; URINE GLUCOSE (UA) 3+ (NEGATIVE); URINE KETONE 3+ (NEGATIVE); URINE LEUK ESTERASE NEGATIVE (NEGATIVE); URINE NITRITE NEGATIVE (NEGATIVE); URINE PROTEIN 1+ (NEGATIVE); URINE RBC 8 /uL (0-23.9); URINE UROBILINOGEN 0.2 mg/dL (0.2-1.0); URINE WBC 4 /uL (0-25.8)
[2021-04-23] MEDS ORDERED: INSULIN REGULAR 100 UNITS in SODIUM CHLORIDE 99 ML IVPB SCH (23:45)
[2021-04-23] MEDS ORDERED: SODIUM CHLORIDE 0.45% 1,000 ML IV SCH (23:45)
[2021-04-23 23:50] LABS: GLUCOSE,RANDOM 652 mg/dL (74-106)
[2021-04-23] MEDS ORDERED: INSULIN REGULAR HUMAN 100 UNITS/ML *VIAL* (FOR IVP) IVPUSH ONE (23:56)
[2021-04-24] MEDS ORDERED: LACTATED RINGERS SOLUTION 1,000 ML/1,000 ML INFUS.BAG IV SCH (00:15)
[2021-04-24] MEDS ORDERED: ASPIRIN 81 MG CHEWABLE TABLETS PO ONE (00:16)
[2021-04-24] MEDS ORDERED: ASPIRIN 81 MG CHEWABLE TABLETS ONE (00:25)
[2021-04-24] MEDS ORDERED: METOPROLOL TARTRATE 5 MG/5 ML VIAL IVPUSH ONE (00:55)
[2021-04-24] MEDS ORDERED: metoPROLOL SUCCINATE 25 MG TAB.SR.24H (FP) PO ONE (00:55)
[2021-04-24] MEDS ORDERED: SODIUM CHLORIDE 1,000 ML IV SCH (01:30)
[2021-04-24 03:47] LABS: CHLORIDE 102 mmol/L (98-107); SODIUM 135 mmol/L (136-145)
[2021-04-24 03:48] LABS: CALCIUM 8.4 mg/dL (8.5-10.1)
[2021-04-24 03:49] LABS: BLOOD UREA NITROGEN 20.3 mg/dL (7-18); CO2 5 mmol/L (21-32)
[2021-04-24 03:52] LABS: CREATININE 1.6 mg/dL (0.55-1.3)
[2021-04-24 03:56] LABS: ANION GAP 28 MMOL/L (8-16); GLUCOSE,RANDOM > 500 mg/dL (74-106)
[2021-04-24] MEDS ORDERED: CALCIUM GLUCONATE 10% - 1,000 MG/10 ML VIAL IVPB ONE (04:40)
[2021-04-24 05:09] VITALS: BMI 38.4
[2021-04-24] MEDS: HEPARIN NA (PORCINE) 5,000 UNITS/ML 1ML VIAL SQ SCH ×2 (06:54→14:03)
[2021-04-24 07:03] LABS: BASO % 0.3 % (0-2.0); HEMATOCRIT 40.5 % (35.4-49); HEMOGLOBIN 12.3 GM/dL (11.7-16.9); LYMPH % 6.7 % (8-40); MCH 26.2 pg (25.7-33.7); MCHC 30.3 g/dl (32.0-35.9); MEAN CELL VOLUME 86.4 fl (80-96); MEAN PLT VOLUME 8.7 fl (7.5-11.1); MONO % 8.7 % (3.8-10.2); NEUT % 84.3 % (42.8-82.8); PLATELET COUNT 321 10^3/uL (134-434); RBC 4.69 M/mm3 (4.00-5.60); RDW 17.2 % (11.9-15.9); WHITE BLOOD COUNT 22.1 K/mm3 (4.0-10.0)
[2021-04-24 07:17] LABS: MAGNESIUM 1.7 mg/dL (1.8-2.4)
[2021-04-24 07:18] LABS: CHLORIDE 102 mmol/L (98-107); SODIUM 136 mmol/L (136-145)
[2021-04-24 07:21] LABS: CALCIUM 8.2 mg/dL (8.5-10.1)
[2021-04-24 07:22] LABS: ANION GAP 26 MMOL/L (8-16); CO2 7 mmol/L (21-32)
[2021-04-24 07:25] LABS: CREATININE 1.7 mg/dL (0.55-1.3)
[2021-04-24 08:22] LABS: GLUCOSE,RANDOM 460 mg/dL (74-106)
[2021-04-24 09:09] LABS: ANISOCYTOSIS 0; HELMET CELLS 0; HOWELL-JOLLY BODIES 0; MACROCYTOSIS 0; OVALOCYTE 0; PLATELET ESTIMATE NORMAL; ROULEAU 0; SICKELED CELLS 0; TARGET CELLS 0; TEAR DROP CELLS 0; TOXIC GRANULATION 0
[2021-04-24 09:21] LABS: CHLORIDE 112 mmol/L (98-107); SODIUM 140 mmol/L (136-145)
[2021-04-24 09:23] LABS: CALCIUM 8.2 mg/dL (8.5-10.1)
[2021-04-24 09:24] LABS: ANION GAP 17 MMOL/L (8-16); BLOOD UREA NITROGEN 16.3 mg/dL (7-18); CO2 12 mmol/L (21-32); MAGNESIUM 1.9 mg/dL (1.8-2.4)
[2021-04-24 09:26] LABS: GLUCOSE,RANDOM 210 mg/dL (74-106)
[2021-04-24 09:27] LABS: CREATININE 1.2 mg/dL (0.55-1.3)
[2021-04-24] MEDS ORDERED: D5-1/2NS+40 MEQ KCL - 40 MEQ/1,000 ML INFUS.BAG IV SCH ×2 (09:30→09:31)
[2021-04-24 09:32] LABS: PHOSPHOROUS 0.7 mg/dL (2.5-4.9)
[2021-04-24] MEDS ORDERED: ASPIRIN 81 MG CHEWABLE TABLETS PO SCH (10:00)
[2021-04-24] MEDS ORDERED: PANTOPRAZOLE SODIUM 40 MG VIAL IVPUSH SCH (10:00)
[2021-04-24] MEDS ORDERED: MUPIROCIN 2% TOPICAL OINTMENT FOR DECOLONIZATION NS SCH (10:00)
[2021-04-24] MEDS ORDERED: POTASSIUM PHOSPHATE IVPB ONE (10:30)
[2021-04-24] MEDS ORDERED: SODIUM CHLORIDE IVPB ONE (10:30)
[2021-04-24 11:18] VITALS: TEMP 98
[2021-04-24] MEDS ORDERED: INSULIN REGULAR 100 UNITS in SODIUM CHLORIDE 99 ML IVPB SCH (11:55)
[2021-04-24 15:17] LABS: ANION GAP 13 MMOL/L (8-16); BLOOD UREA NITROGEN 13.9 mg/dL (7-18); CALCIUM 8.1 mg/dL (8.5-10.1); CHLORIDE 114 mmol/L (98-107); CO2 13 mmol/L (21-32); CREATININE 1.1 mg/dL (0.55-1.3); GLUCOSE,RANDOM 206 mg/dL (74-106); MAGNESIUM 1.9 mg/dL (1.8-2.4); PHOSPHOROUS 1.7 mg/dL (2.5-4.9); SODIUM 140 mmol/L (136-145)
[2021-04-24 16:25] VITALS: PULSE 92
[2021-04-24 16:37] LABS: HEMATOCRIT 34.3 % (35.4-49); MCH 26.4 pg (25.7-33.7); MEAN CELL VOLUME 82.4 fl (80-96); MEAN PLT VOLUME 8.5 fl (7.5-11.1); PLATELET COUNT 246 10^3/uL (134-434); RBC 4.16 M/mm3 (4.00-5.60); RDW 17.3 % (11.9-15.9); WHITE BLOOD COUNT 16.5 K/mm3 (4.0-10.0)
[2021-04-24] MEDS ORDERED: INSULIN (LEVEMIR) 100 UNITS/ML UNITS SQ ONE (16:44)
[2021-04-24 16:45] LABS: CHLORIDE 109 mmol/L (98-107); SODIUM 139 mmol/L (136-145)
[2021-04-24 16:47] LABS: CALCIUM 7.9 mg/dL (8.5-10.1)
[2021-04-24 16:48] LABS: ANION GAP 14 MMOL/L (8-16); BLOOD UREA NITROGEN 11.5 mg/dL (7-18); CO2 17 mmol/L (21-32)
[2021-04-24 16:51] LABS: CREATININE 1.2 mg/dL (0.55-1.3); GLUCOSE,RANDOM 211 mg/dL (74-106); SGOT/AST 77 U/L (15-37); SGPT/ALT 15 U/L (13-61)
[2021-04-24 16:52] LABS: BILIRUBIN,TOTAL 0.2 mg/dL (0.2-1)
[2021-04-24 16:53] LABS: ALK PHOS 51 U/L (45-117); TOT PROT 5.8 g/dl (6.4-8.2)
[2021-04-24 17:25] LABS: ALBUMIN 2.7 g/dl (3.4-5.0)
[2021-04-24] MEDS ORDERED: CLOPIDOGREL BISULFATE 300 MG TABLET PO ONE (17:43)
[2021-04-24] MEDS ORDERED: HEPARIN NA (PORCINE) 5,000 UNITS/ML 1ML VIAL IVPUSH PRN ×2 (17:43)
[2021-04-24] MEDS ORDERED: HEPARIN - 25,000 UNIT in SODIUM CHLORIDE 495 ML IV SCH (17:45)
[2021-04-24 18:42] VITALS: BP 124/79
[2021-04-24] MEDS ORDERED: CHLORHEXIDINE GLUCONATE 4% CLEANSER FOR DECOLONIZATION TP SCH (22:00)
[2021-04-24] MEDS ORDERED: ATORVASTATIN CA 40 MG TABLET (FP) PO SCH (22:00)
== END 2021-04-24 18:40 | disposition short-term general hospital (02) | DRG 638 ==
LOC: JER 21:42 → JERBED 04-24 01:00 → JICU 04-24 03:49
PROVIDERS: ADMIT Internal Medicine; ATTEND Internal Medicine
DX: E10.10 Type 1 diabetes mellitus with ketoacidosis without coma (principal); N17.9 Acute kidney failure, unspecified; I24.8 Other forms of acute ischemic heart disease; I25.10 Atherosclerotic heart disease of native coronary artery without angina pectoris; I10 Essential (primary) hypertension; E78.5 Hyperlipidemia, unspecified; I25.2 Old myocardial infarction; Z79.4 Long term (current) use of insulin; E86.0 Dehydration
CPT/HCPCS: 36415; 71045-TC-FY; 76775-TC; 80048; 80053; 81003; 82010; 82550; 82553; 82803; 82962; 83036; 83605; 83735; 83880; 84100; 84443; 84484; 85025; 85027; 85379; 85610; 85730; 86850; 86900; 86901; 87040; 87086; 87804; 93005; 93010; 93306-TC; 99285-25; C9803; J1644; U0003; U0005

== ENCOUNTER 2023-10-20 13:38 | Emergency (ER) | payer BC ==
[2023-10-20 13:44] VITALS: RESP 18; BMI 39.9
[2023-10-20 14:49] LABS: VENOUS BASE EXCESS -2.9 mmol/L (-2-2); VENOUS O2 SATURATION 87.3 % (70-80); VENOUS PCO2 41.5 mmHg (38-52); VENOUS PH 7.352 (7.310-7.410)
[2023-10-20 14:50] LABS: BASO % 0.9 % (0-2.0); EOS % 1.6 % (0-4.5); HEMATOCRIT 40.6 % (35.4-49); HEMOGLOBIN 13.4 GM/dL (11.7-16.9); LYMPH % 13.7 % (8-40); MCH 29.2 pg (25.7-33.7); MCHC 33.1 g/dl (32.0-35.9); MEAN CELL VOLUME 88.1 fl (80-96); MEAN PLT VOLUME 7.1 fl (7.5-11.1); NEUT % 78.8 % (42.8-82.8); PLATELET COUNT 273 10^3/uL (134-434); RBC 4.61 M/mm3 (4.00-5.60); RDW 14.6 % (11.9-15.9)
[2023-10-20] MEDS: LACTATED RINGERS SOLUTION 1000 ML INFUS.BAG IV ONE ×2 (14:51→16:31)
[2023-10-20 14:56] LABS: INR 1.05 (0.83-1.09); PROTHROMBIN TIME (PATIENT) 12.2 SEC (9.7-13.0)
[2023-10-20 14:59] LABS: ACTIVATED PTT 30.8 SECONDS (25.2-36.5)
[2023-10-20 15:14] LABS: URINE APPEARANCE CLEAR; URINE BILIRUBIN NEGATIVE (NEGATIVE); URINE COLOR YELLOW; URINE GLUCOSE (UA) 3+ (NEGATIVE); URINE KETONE 1+ (NEGATIVE); URINE LEUK ESTERASE NEGATIVE (NEGATIVE); URINE NITRITE NEGATIVE (NEGATIVE); URINE PROTEIN NEGATIVE (NEGATIVE); URINE UROBILINOGEN 0.2 mg/dL (0.2-1.0)
[2023-10-20 15:22] LABS: ALBUMIN 3.3 g/dl (3.4-5.0); ALK PHOS 46 U/L (45-117); ANION GAP 4 mmol/L (4-13); BILIRUBIN,TOTAL 0.8 mg/dL (0.2-1); BLOOD UREA NITROGEN 24.6 mg/dL (7-18); CALCIUM 8.8 mg/dL (8.5-10.1); CHLORIDE 101 mmol/L (98-107); CO2 28 mmol/L (21-32); CREATININE 1.1 mg/dL (0.55-1.3); GLUCOSE,RANDOM 457 mg/dL (74-106); MAGNESIUM 1.9 mg/dL (1.8-2.4); POTASSIUM 5.1 mmol/L (3.5-5.1); SGOT/AST 31 U/L (15-37); SGPT/ALT 26 U/L (13-61); SODIUM 133 mmol/L (136-145); TOT PROT 6.3 g/dl (6.4-8.2)
[2023-10-20 15:50] VITALS: BP 128/77; PULSE 91; TEMP 97.9
[2023-10-20 17:03] LABS: ALBUMIN 3.1 g/dl (3.4-5.0); BILIRUBIN,TOTAL 0.4 mg/dL (0.2-1); BLOOD UREA NITROGEN 23.4 mg/dL (7-18); CALCIUM 8.6 mg/dL (8.5-10.1); CREATININE 0.9 mg/dL (0.55-1.3); POTASSIUM 4.2 mmol/L (3.5-5.1); TOT PROT 5.8 g/dl (6.4-8.2)
== END 2023-10-20 18:07 | disposition home or self-care (01) ==
LOC: JER 13:38
DX: E10.65 Type 1 diabetes mellitus with hyperglycemia (principal); Z79.4 Long term (current) use of insulin; R35.0 Frequency of micturition; K92.1 Melena; R07.9 Chest pain, unspecified; Z20.822 Contact with and (suspected) exposure to COVID-19
CPT/HCPCS: 0241U-QW; 36415; 71045-TC-FY; 80053; 81003; 82010; 82272; 82803; 82962; 83735; 83880; 84484; 85025; 85610; 85730; 87086; 93005; 93010; 99285-25

== ENCOUNTER 2023-10-31 02:11 | Inpatient (IN) | payer BC ==
[2023-10-31] MEDS: LACTATED RINGERS SOLUTION 1000 ML INFUS.BAG IV ONE ×4 (03:23→05:44)
[2023-10-31 03:29] LABS: VENOUS O2 SATURATION 91.1 % (70-80); VENOUS PCO2 38.8 mmHg (38-52); VENOUS PH 7.248 (7.310-7.410)
[2023-10-31 03:30] LABS: BASO % 0.5 % (0-2.0); EOS % 0.5 % (0-4.5); HEMATOCRIT 45.3 % (35.4-49); LYMPH % 12.9 % (8-40); MCHC 33.1 g/dl (32.0-35.9); MEAN CELL VOLUME 87.5 fl (80-96); MEAN PLT VOLUME 7.2 fl (7.5-11.1); MONO % 4.6 % (3.8-10.2); NEUT % 81.5 % (42.8-82.8); PLATELET COUNT 348 10^3/uL (134-434); RBC 5.18 M/mm3 (4.00-5.60); RDW 14.7 % (11.9-15.9); WHITE BLOOD COUNT 15.3 K/mm3 (4.0-10.0)
[2023-10-31 03:35] LABS: INR 1.07 (0.83-1.09); PROTHROMBIN TIME (PATIENT) 12.4 SEC (9.7-13.0)
[2023-10-31 03:37] LABS: ACTIVATED PTT 33.5 SECONDS (25.2-36.5)
[2023-10-31 03:48] LABS: CHLORIDE 97 mmol/L (98-107); POTASSIUM 5.1 mmol/L (3.5-5.1); SODIUM 131 mmol/L (136-145)
[2023-10-31 03:51] LABS: ANION GAP 14 mmol/L (4-13); BLOOD UREA NITROGEN 31.9 mg/dL (7-18); CO2 20 mmol/L (21-32); MAGNESIUM 2.1 mg/dL (1.8-2.4)
[2023-10-31 03:54] LABS: CREATININE 1.1 mg/dL (0.55-1.3); SGOT/AST 17 U/L (15-37); SGPT/ALT 23 U/L (13-61)
[2023-10-31 03:55] LABS: TOT PROT 7.2 g/dl (6.4-8.2)
[2023-10-31 03:56] LABS: ALK PHOS 60 U/L (45-117)
[2023-10-31 05:13] LABS: ALBUMIN 3.9 g/dl (3.4-5.0); GLUCOSE,RANDOM 492 mg/dL (74-106)
[2023-10-31 05:30] LABS: URINE APPEARANCE CLEAR; URINE BILIRUBIN NEGATIVE (NEGATIVE); URINE COLOR YELLOW; URINE GLUCOSE (UA) 3+ (NEGATIVE); URINE KETONE 4+ (NEGATIVE); URINE LEUK ESTERASE NEGATIVE (NEGATIVE); URINE NITRITE NEGATIVE (NEGATIVE); URINE PROTEIN NEGATIVE (NEGATIVE); URINE UROBILINOGEN 0.2 mg/dL (0.2-1.0)
[2023-10-31] MEDS: INSULIN REGULAR HUMAN 100 UNITS/ML *VIAL SQ ONE (06:15)
[2023-10-31 08:16] LABS: CHLORIDE 99 mmol/L (98-107); POTASSIUM 5.2 mmol/L (3.5-5.1); SODIUM 135 mmol/L (136-145)
[2023-10-31 08:17] LABS: CALCIUM 10.2 mg/dL (8.5-10.1)
[2023-10-31 08:18] LABS: ANION GAP 19 mmol/L (4-13); CO2 17 mmol/L (21-32)
[2023-10-31 08:21] LABS: CREATININE 1.2 mg/dL (0.55-1.3)
[2023-10-31 08:26] LABS: GLUCOSE,RANDOM 476 mg/dL (74-106)
[2023-10-31] MEDS ORDERED: INSULIN REGULAR HUMAN 100 UNITS/ML *VIAL SQ ONE (11:18)
[2023-10-31] MEDS: SODIUM CHLORIDE 0.45% 1,000 ML IV SCH (11:45)
[2023-10-31 11:48] LABS: BASO % 0.6 % (0-2.0); EOS % 0.1 % (0-4.5); HEMATOCRIT 42.2 % (35.4-49); LYMPH % 7.6 % (8-40); MCH 29.1 pg (25.7-33.7); MCHC 33.2 g/dl (32.0-35.9); MEAN CELL VOLUME 87.8 fl (80-96); MONO % 6.6 % (3.8-10.2); NEUT % 85.1 % (42.8-82.8); PLATELET COUNT 314 10^3/uL (134-434); RDW 14.6 % (11.9-15.9); WHITE BLOOD COUNT 14.5 K/mm3 (4.0-10.0)
[2023-10-31] MEDS: INSULIN REGULAR HUMAN 100 UNITS/ML *VIAL IVPUSH ONE (12:06)
[2023-10-31] MEDS: INSULIN (NOVOLOG) ASPART 100 UNITS/ML 10ML VIAL SQ ONE (12:06)
[2023-10-31 12:09] LABS: POTASSIUM 4.8 mmol/L (3.5-5.1)
[2023-10-31 12:11] LABS: ALBUMIN 3.6 g/dl (3.4-5.0); BLOOD UREA NITROGEN 28.8 mg/dL (7-18); CALCIUM 9.3 mg/dL (8.5-10.1); MAGNESIUM 2.1 mg/dL (1.8-2.4)
[2023-10-31 12:14] LABS: CREATININE 1.1 mg/dL (0.55-1.3); PHOSPHOROUS 4.4 mg/dL (2.5-4.9)
[2023-10-31 12:16] VITALS: BMI 39.1
[2023-10-31 12:16] LABS: BILIRUBIN,TOTAL 0.6 mg/dL (0.2-1); TOT PROT 6.8 g/dl (6.4-8.2)
[2023-10-31] MEDS ORDERED: LACTATED RINGERS SOLUTION 1,000 ML/1,000 ML INFUS.BAG IV SCH ×2 (12:45)
[2023-10-31] MEDS: SODIUM CHLORIDE 1,000 ML IV SCH (14:12)
[2023-10-31] MEDS: INSULIN ASPART SLIDING SCALE (NOVOLOG) 1 VIAL SQ SCH (17:12)
[2023-10-31 17:19] LABS: POTASSIUM 4.3 mmol/L (3.5-5.1)
[2023-10-31 17:21] LABS: BLOOD UREA NITROGEN 26.3 mg/dL (7-18)
[2023-10-31] MEDS: MIRTAZAPINE 15 MG TABLET (FP) PO SCH (21:44)
[2023-10-31] MEDS: ROSUVASTATIN CA 20 MG TABLET PO SCH (21:44)
[2023-10-31] MEDS: ASPIRIN 325 MG ENTERIC COATED TABLET (FP) PO ONE (21:44)
[2023-10-31] MEDS: INSULIN (LEVEMIR) 100 UNITS/ML UNITS SQ SCH (21:45)
[2023-11-01 07:26] LABS: HEMATOCRIT 38.9 % (35.4-49); HEMOGLOBIN 12.8 GM/dL (11.7-16.9); MCH 29.2 pg (25.7-33.7); MCHC 33.1 g/dl (32.0-35.9); MEAN CELL VOLUME 88.2 fl (80-96); MEAN PLT VOLUME 7.2 fl (7.5-11.1); PLATELET COUNT 258 10^3/uL (134-434); RDW 14.6 % (11.9-15.9)
[2023-11-01 07:31] LABS: POTASSIUM 4.3 mmol/L (3.5-5.1)
[2023-11-01 07:37] LABS: ALBUMIN 3.1 g/dl (3.4-5.0); CALCIUM 8.1 mg/dL (8.5-10.1)
[2023-11-01 07:38] LABS: BLOOD UREA NITROGEN 21.8 mg/dL (7-18); MAGNESIUM 1.9 mg/dL (1.8-2.4)
[2023-11-01 07:40] LABS: PHOSPHOROUS 2.1 mg/dL (2.5-4.9)
[2023-11-01 07:42] LABS: BILIRUBIN,TOTAL 0.7 mg/dL (0.2-1); TOT PROT 5.8 g/dl (6.4-8.2)
[2023-11-01] MEDS ORDERED: INSULIN (NOVOLOG) ASPART 100 UNITS/ML 10ML VIAL ONE ×2 (10:07→16:16)
[2023-11-01] MEDS: INSULIN (LEVEMIR) 100 UNITS/ML UNITS SQ SCH (10:29)
[2023-11-01] MEDS: ASPIRIN COATED 81 MG TABLET.EC PO SCH (10:30)
[2023-11-01] MEDS: metoPROLOL SUCCINATE 25 MG TAB.SR.24H (FP) PO SCH (10:30)
[2023-11-01 15:36] VITALS: RESP 18
[2023-11-01 20:24] VITALS: TEMP 98.1
[2023-11-01] MEDS: RAMIPRIL 5 MG CAPSULE PO SCH (22:07)
[2023-11-02 01:44] VITALS: PULSE 84
[2023-11-02 06:18] VITALS: BP 160/88
[2023-11-02 08:27] LABS: BASO % 0.8 % (0-2.0); HEMATOCRIT 37.3 % (35.4-49); HEMOGLOBIN 12.6 GM/dL (11.7-16.9); LYMPH % 27.3 % (8-40); MCH 29.4 pg (25.7-33.7); MCHC 33.8 g/dl (32.0-35.9); MEAN PLT VOLUME 7.2 fl (7.5-11.1); MONO % 10.8 % (3.8-10.2); NEUT % 59.1 % (42.8-82.8); PLATELET COUNT 221 10^3/uL (134-434); POTASSIUM 3.8 mmol/L (3.5-5.1); RBC 4.29 M/mm3 (4.00-5.60); RDW 14.4 % (11.9-15.9); WHITE BLOOD COUNT 6.9 K/mm3 (4.0-10.0)
[2023-11-02 08:32] LABS: BLOOD UREA NITROGEN 14.3 mg/dL (7-18); CALCIUM 8.4 mg/dL (8.5-10.1)
[2023-11-02 08:36] LABS: CREATININE 0.6 mg/dL (0.55-1.3); PHOSPHOROUS 2.3 mg/dL (2.5-4.9)
[2023-11-02 08:37] LABS: BILIRUBIN,TOTAL 0.6 mg/dL (0.2-1); TOT PROT 5.8 g/dl (6.4-8.2)
[2023-11-02] MEDS: EZETIMIBE 10 MG TABLET (FP) PO SCH (09:37)
[2023-11-02] MEDS ORDERED: TADALAFIL 20 MG PO SCH (10:00)
== END 2023-11-02 14:05 | disposition home or self-care (01) | DRG 638 ==
LOC: JER 02:11 → JERBED 06:29 → OBSVTOIN 08:53 → J7W 09:36 → J4W 14:23
PROVIDERS: ADMIT Internal Medicine; ATTEND Internal Medicine
DX: E10.10 Type 1 diabetes mellitus with ketoacidosis without coma (principal); I24.89 Other forms of acute ischemic heart disease; I10 Essential (primary) hypertension; E78.5 Hyperlipidemia, unspecified; F41.8 Other specified anxiety disorders; I25.10 Atherosclerotic heart disease of native coronary artery without angina pectoris
CPT/HCPCS: 0241U-QW; 36415; 71045-TC-FY; 80048; 80053; 81003; 82010; 82272; 82803; 82962; 83036; 83735; 84100; 84484; 85025; 85027; 85610; 85730; 87086; 93005; 93010; 93306-TC; 99285-25; G0378